=== PATIENT | male | born 1935 | race Caucasian/White ===

== ENCOUNTER 2021-02-03 04:49 | Inpatient (IN) ==
[2021-02-03] MEDS ORDERED: Heparin 1,000 UNITS/500 mL 500 ML ONE (05:20)
[2021-02-03] MEDS ORDERED: 0.9 % Sodium Chloride 1,000 ML ONE ×2 (05:20→11:12)
[2021-02-03] MEDS ORDERED: *HR* Heparin 10,000 UNIT/10 ML VIAL ONE (05:20)
[2021-02-03] MEDS ORDERED: Nitroglycerin 1,000 MCG/5 ML VIAL IV ONE (05:21)
[2021-02-03] MEDS ORDERED: ISOVUE-370 200 ML INFUS..BTL ONE ×2 (05:21→06:09)
[2021-02-03] MEDS ORDERED: *HR* FentaNYL (PF) 100 MCG/2 ML VIAL ONE (05:32)
[2021-02-03] MEDS ORDERED: Tirofiban 12.5 MG/250ML 12.5 MG/250 ML BAG ONE (05:33)
[2021-02-03] MEDS ORDERED: *HR* Midazolam HCl 2 MG/2 ML VIAL ONE (05:33)
[2021-02-03] MEDS ORDERED: Perflutren Lipid Microsphere 1.3 ML in 0.9 % Sodium Chloride 8.7 ML IVP PRN (07:08)
[2021-02-03] MEDS ORDERED: Tirofiban 12.5 MG/250ML 12.5 MG/250 ML BAG IVC SCH (07:15)
[2021-02-03] MEDS: Aspirin 81 MG TAB.CHEW PO SCH (11:28)
[2021-02-03] MEDS: lisinopriL 5 MG TABLET PO SCH (12:10)
[2021-02-04 05:32] LABS: Basophils % 0.3 %; Hematocrit 37.4 % (37.5-50.1); Hemoglobin 12.4 g/dL (12.9-16.9); Immature Granulocytes % 0.2 % (0-4); Lymphocytes # 1.4 K/mcL (0.6-4.6); Lymphocytes % 13.2 %; Mean Corpuscular HGB Conc 33.2 g/dL (31.6-35.5); Mean Corpuscular Hemoglobin 29.7 pg (28.0-33.3); Mean Corpuscular Volume 89.5 fL (83.0-100.0); Mean Platelet Volume 10.1 fL (9.4-12.4); Monocytes # 0.9 K/mcL (0.0-1.3); Monocytes % 8.1 %; Neutrophils # 8.3 K/mcL (1.6-8.9); Platelet Count 187 K/mcL (140-400); Red Blood Count 4.18 M/mcL (4.19-5.50); Red Cell Distribution Width 13.4 % (11.5-14.5); Segmented Neutrophils % 78.2 %; White Blood Count 10.6 K/mcL (4.3-11.1)
[2021-02-04 05:51] LABS: BUN/Creatinine Ratio 15 (6-26); Blood Urea Nitrogen 18 mg/dL (8-23); Calcium 8.9 mg/dL (8.6-10.3); Carbon Dioxide 31 mEq/L (23-29); Chloride 103 mEq/L (98-107); Glucose 102 mg/dL (70-105); Osmolality,Calculated 288 (280-300); Potassium 4.6 mEq/L (3.5-5.1); Sodium 138 mEq/L (136-145); eGFR For African Americans > 60 (> 60); eGFR For Non-African Americans 56 (> 60)
[2021-02-04] MEDS: lisinopriL 5 MG TABLET PO SCH (08:29)
[2021-02-04] MEDS: Aspirin 81 MG TAB.CHEW PO SCH (08:29)
[2021-02-04] MEDS ORDERED: NON-FORMULARY MEDICATION 1 EACH EACH (Amlodipine Besylate 10 MG Tablet) PO SCH (10:00)
[2021-02-04] MEDS ORDERED: NON-FORMULARY MEDICATION 1 EACH EACH (Losartan Potassium [Cozaar] 50 MG Tablet) PO SCH (10:00)
[2021-02-04] MEDS: Azithromycin 500 MG in 0.9 % Sodium Chloride 250 ML IVPB SCH (11:01)
[2021-02-04] MEDS: cefTRIAXone 2,000 MG in Water for inj. (sterile) 20 ML IVP SCH (11:01)
[2021-02-04] MEDS: Ipratropium/Albuterol Neb 3 ML IH SCH ×4 (11:28→23:26)
[2021-02-05] MEDS: Ipratropium/Albuterol Neb 3 ML IH SCH ×3 (04:02→11:01)
[2021-02-05 06:27] VITALS: O2SAT 98
[2021-02-05] MEDS: Aspirin 81 MG TAB.CHEW PO SCH (08:52)
[2021-02-05] MEDS: lisinopriL 5 MG TABLET PO SCH (08:52)
[2021-02-05] MEDS: Azithromycin 500 MG in 0.9 % Sodium Chloride 250 ML IVPB SCH (08:54)
[2021-02-05] MEDS: cefTRIAXone 2,000 MG in Water for inj. (sterile) 20 ML IVP SCH (08:55)
[2021-02-05 11:56] VITALS: BP 129/71; PULSE 102; TEMP 97.9
== END 2021-02-05 14:26 | disposition home or self-care (01) | DRG 246 ==
LOC: ICNU → 2ANU 02-04 13:47
PROVIDERS: ADMIT Internal Medicine Cardiovascular Disease; ATTEND Internal Medicine Cardiovascular Disease